=== PATIENT | male | born 1980 | race Two or more races ===

== ENCOUNTER 2025-06-02 19:35 | Emergency (ER) | payer OTHER, SELFPAY ==
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
[2025-06-02 19:52] VITALS: BP 114/65; PULSE 56; RESP 18; TEMP 36.7; O2SAT 96; BMI 27.3
[2025-06-02] MEDS: Lidocaine 4 % Patch ADH..PATCH 1 PATCH TRANSDERMA (23:22)
[2025-06-02 23:26] VITALS: BP 114/65; PULSE 56; RESP 18; TEMP 36.7; O2SAT 96
== END 2025-06-02 23:26 | disposition home or self-care (01) ==
PROVIDERS: Emergency Provider Emergency Medicine
DX: S16.1XXA Strain of muscle, fascia and tendon at neck level, initial encounter (principal); S13.4XXA Sprain of ligaments of cervical spine, initial encounter; V43.52XA Car driver injured in collision with other type car in traffic accident, initial encounter; Y92.488 Other paved roadways as the place of occurrence of the external cause; Y93.89 Activity, other specified; Y99.8 Other external cause status
CPT/HCPCS: 70450; 72125; 99283; 99284

== ENCOUNTER → 2025-06-02 19:54 | Outpatient (BNV) | payer OTHER, SELFPAY | PROVIDERS: Emergency Provider Emergency Medicine; Visit Provider Radiology Diagnostic Radiology | DX: M54.2 Cervicalgia (principal); S09.90XA Unspecified injury of head, initial encounter; R51.9 Headache, unspecified; W19.XXXA Unspecified fall, initial encounter | CPT/HCPCS: 70450; 72125 ==